=== PATIENT | female | born 1945 | race Two or more races ===

== ENCOUNTER 2025-02-10 17:22 | Inpatient (IN) | payer MEDICARE, OTHER ==
[~2025-02-10] VITALS: Ht 147.3 cm; Wt 45.8 kg
[2025-02-10] MEDS ORDERED: QUET50TA24 PO (17:33)
[2025-02-10] MEDS ORDERED: DONE5TAB34 PO (17:33)
[2025-02-10] MEDS ORDERED: DIVA125T32 PO (17:33)
[2025-02-10] MEDS ORDERED: ATOR10TA PO (17:33)
[2025-02-10] MEDS ORDERED: AMLO-212 PO (17:33)
[2025-02-10] MEDS ORDERED: OLAN5TAB70 PO (17:33)
[2025-02-10 18:08] LABS: *BILIRUBIN,URIN NEGATIVE (NEGATIVE); *CLARITY,URINE CLEAR (CLEAR); *KETONES,URINE NEGATIVE (NEGATIVE); *PROTEIN,URINE NEGATIVE (NEGATIVE); *UROBILINOGEN,URINE 0.2 E.U./dl (NORMAL); LEUKOCYTE ESTERASE ,URINE TRACE (NEGATIVE); NITRITE, URINE NEGATIVE (NEGATIVE); UGLUCOSE NEGATIVE (NEGATIVE)
[2025-02-10 18:11] LABS: CREATININE 0.9 mg/dL (0.6-1.3); PLATELET COUNT (AUTO) 215 K/uL (179-408); RED BLOOD CELL COUNT(AUTO) 4.77 MIL/uL (3.63-4.92); RED CELL DISTRIBUTION WIDTH 12.0 % (12.3-17.7); SODIUM SERUM 140 mmol/L (136-145); UREA NITROGEN, BLOOD 17 mg/dL (7-18); WHITE BLOOD COUNT (AUTO) 8.4 K/uL (3.8-11.8)
[2025-02-10 18:12] LABS: *BLOOD, URINE TRACE (NEGATIVE); *COLOR,URINE LIGHT YELLOW (YELLOW)
[2025-02-10 18:16] LABS: ASPARTATE AMINOTRANSFERASE 15 U/L (15-37); TOTAL PROTEIN, SERUM 8.6 g/dL (6.4-8.2)
[2025-02-10 18:21] LABS: SQUAMOUS EPITHELIAL CELL,UR FEW /HPF (NONE SEEN)
[2025-02-10 18:23] LABS: *AMPHETAMINE, URINE NEGATIVE (NEGATIVE); *BARBITURATE, URINE NEGATIVE (NEGATIVE); *BENZODIAZEPINE, URINE NEGATIVE (NEGATIVE); *CANNABINOID, URINE NEGATIVE (NEGATIVE); *COCCAINE, URINE NEGATIVE (NEGATIVE); *OPIATE, URINE NEGATIVE (NEGATIVE); *PHENCYCLIDINE SCREEN,URINE NEGATIVE (NEGATIVE); FENTANYL, URINE NEGATIVE (NEGATIVE)
[2025-02-10 18:25] LABS: ETHANOL < 3 MG/DL (0-10)
[2025-02-10] MEDS: OLANZAPINE 10 MG VIAL IM ONE (21:01)
[2025-02-10] MEDS: MIDAZOLAM HCL 2 MG/2 ML VIAL IM ONE (21:02)
[2025-02-10] MEDS ORDERED: MAGNESIUM HYDROXIDE 30 ML LIQUID UDC PO PRN (21:15)
[2025-02-10] MEDS ORDERED: ZOLPIDEM 5 MG TABLET PO PRN ×2 (21:15)
[2025-02-10] MEDS ORDERED: QUETIAPINE FUMARATE 25 MG TABLET PO SCH (21:15)
[2025-02-10] MEDS ORDERED: QUETIAPINE FUMARATE 25 MG TABLET PO PRN (21:15)
[2025-02-10] MEDS: BLOOD SUGAR DIAGNOSTIC 1 EACH STRIP VI ONE (21:28)
[2025-02-10] MEDS: HALOPERIDOL LACTATE 5 MG/1 ML VIAL IM STA (23:33)
[2025-02-10] MEDS: LORAZEPAM 2 MG/1 ML VIAL IM STA (23:33)
[2025-02-11] MEDS ORDERED: QUETIAPINE FUMARATE 25 MG TABLET PO PRN (05:45)
[2025-02-11] MEDS ORDERED: CLON0.1T PO (06:01)
[2025-02-11] MEDS ORDERED: IBUP-1953 PO (06:02)
[2025-02-11] MEDS ORDERED: MULT-647 PO (06:02)
[2025-02-11] MEDS ORDERED: IBUP-1955 PO (06:04)
[2025-02-11 07:58] VITALS: BP 121/77; TEMP 98; O2SAT 96
[2025-02-11] MEDS ORDERED: CLONIDINE HCL 0.1 MG TABLET PO PRN (10:15)
[2025-02-11] MEDS: DIVALPROEX 125 MG TABLET.DR PO SCH (15:17)
[2025-02-11] MEDS: ENSURE ENLIVE (VAN) 240 ML LIQUID PO SCH (15:24)
[2025-02-11 15:57] VITALS: BP 125/73; TEMP 98; O2SAT 96
[2025-02-11] MEDS: ATORVASTATIN 10 MG TABLET PO SCH (21:00)
[2025-02-11] MEDS: OLANZAPINE 2.5 MG TABLET PO SCH (21:00)
[2025-02-12 08:00] VITALS: BP 112/69; TEMP 98; O2SAT 98
[2025-02-12] MEDS: AMLODIPINE 5 MG TABLET PO SCH (08:37)
[2025-02-12 19:48] VITALS: BP 130/85; TEMP 98; O2SAT 96
[2025-02-13 08:55] VITALS: O2SAT 98
[2025-02-13 16:27] VITALS: BP 139/83; TEMP 98; O2SAT 100
[2025-02-13 20:00] VITALS: BP 121/84; TEMP 97.7; O2SAT 96
[2025-02-14 08:40] VITALS: BP 128/61; TEMP 98; O2SAT 98
[2025-02-14 16:51] VITALS: BP 149/88; TEMP 98; O2SAT 95
[2025-02-15] MEDS: OLANZAPINE 2.5 MG TABLET PO SCH (08:43)
[2025-02-16 08:42] VITALS: BP 141/93; O2SAT 100
[2025-02-16] MEDS: OLANZAPINE 10 MG VIAL IM PRN (11:10)
[2025-02-16 16:11] VITALS: BP 149/92; TEMP 98.3; O2SAT 97
[2025-02-16 19:57] VITALS: BP 145/89; TEMP 98; O2SAT 96
[2025-02-17 07:30] VITALS: BP 110/67; TEMP 98; O2SAT 96
[2025-02-17 19:38] VITALS: BP 112/64; TEMP 97.9; O2SAT 95
[2025-02-18] MEDS ORDERED: DIVALPROEX 125 MG TABLET.DR PO SCH (14:00)
[2025-02-18] MEDS: DIVALPROEX 250 MG TABLET.DR PO SCH (14:00)
[2025-02-18 15:43] VITALS: BP 140/82; TEMP 98; O2SAT 96
[2025-02-18 20:00] VITALS: BP 156/88; TEMP 98; O2SAT 96
[2025-02-19 09:08] VITALS: BP 126/87; TEMP 98; O2SAT 98
[2025-02-19] MEDS ORDERED: LORAZEPAM 2 MG/1 ML VIAL IV ONE (12:45)
[2025-02-19] MEDS ORDERED: LORAZEPAM 2 MG/1 ML VIAL IM ONE (12:45)
[2025-02-19 15:17] VITALS: BP 150/95; TEMP 98.2; O2SAT 99
[2025-02-19] MEDS: LORAZEPAM 2 MG/1 ML VIAL IM ONE (15:36)
[2025-02-19 20:00] VITALS: BP 110/79; TEMP 98; O2SAT 97
[2025-02-20 08:20] VITALS: BP 118/76; TEMP 98.3; O2SAT 97
[2025-02-20 20:00] VITALS: BP 129/75; TEMP 98.5; O2SAT 96
[2025-02-21] MEDS: ZOLPIDEM 5 MG TABLET PO PRN (01:33)
[2025-02-21] MEDS: ACETAMINOPHEN 325 MG TABLET PO PRN (03:54)
[2025-02-21 08:51] VITALS: BP 112/75; TEMP 98; O2SAT 98
[2025-02-21] MEDS: IBUPROFEN 600 MG TABLET PO PRN (09:26)
[2025-02-21 16:12] VITALS: BP 126/65; TEMP 98; O2SAT 99
[2025-02-21 20:23] VITALS: BP 118/72; TEMP 98.1; O2SAT 95
[2025-02-21] MEDS: OLANZAPINE 5 MG TABLET PO SCH (20:23)
[2025-02-21] MEDS ORDERED: OLANZAPINE 2.5 MG TABLET PO SCH (21:00)
[2025-02-22] MEDS: OLANZAPINE 10 MG VIAL IM ONE (00:48)
[2025-02-22 08:56] VITALS: BP 115/80; TEMP 98; O2SAT 98
[2025-02-22] MEDS ORDERED: DIVALPROEX 250 MG TABLET.DR PO SCH (14:00)
[2025-02-22] MEDS: DIVALPROEX 125 MG TABLET.DR PO SCH (15:45)
[2025-02-22] MEDS: OLANZAPINE 2.5 MG TABLET PO SCH (15:46)
[2025-02-22 16:31] VITALS: BP 122/50; TEMP 98.1; O2SAT 95
[2025-02-22] MEDS: OLANZAPINE 5 MG TABLET PO SCH (21:47)
[2025-02-23] MEDS: HALOPERIDOL LACTATE 5 MG/1 ML VIAL IM ONE (04:24)
[2025-02-23 08:22] VITALS: BP 122/76; TEMP 97.6; O2SAT 97
[2025-02-23 11:42] LABS: PLATELET COUNT (AUTO) 145 K/uL (179-408); RED BLOOD CELL COUNT(AUTO) 4.91 MIL/uL (3.63-4.92); RED CELL DISTRIBUTION WIDTH 12.6 % (12.3-17.7); WHITE BLOOD COUNT (AUTO) 8.3 K/uL (3.8-11.8)
[2025-02-23 11:49] LABS: CREATININE 0.7 mg/dL (0.6-1.3); SODIUM SERUM 145 mmol/L (136-145); UREA NITROGEN, BLOOD 22 mg/dL (7-18)
[2025-02-23] MEDS: OLANZAPINE 5 MG TABLET PO SCH (13:36)
[2025-02-23] MEDS: OLANZAPINE 10 MG VIAL IM PRN (13:41)
[2025-02-23] MEDS ORDERED: OLANZAPINE 2.5 MG TABLET PO SCH (14:00)
[2025-02-23 16:49] VITALS: BP 114/72; TEMP 97.1; O2SAT 98
[2025-02-23 20:00] VITALS: BP 124/72; TEMP 98; O2SAT 95
[2025-02-23] MEDS ORDERED: OLANZAPINE 10 MG VIAL IM PRN (21:00)
[2025-02-23 21:21] LABS: *BILIRUBIN,URIN NEGATIVE (NEGATIVE); *BLOOD, URINE NEGATIVE (NEGATIVE); *CLARITY,URINE CLEAR (CLEAR); *COLOR,URINE YELLOW (YELLOW); *KETONES,URINE 2+ (NEGATIVE); *PROTEIN,URINE 1+ (NEGATIVE); *UROBILINOGEN,URINE 0.2 E.U./dl (NORMAL); LEUKOCYTE ESTERASE ,URINE NEGATIVE (NEGATIVE); NITRITE, URINE NEGATIVE (NEGATIVE); UGLUCOSE NEGATIVE (NEGATIVE)
[2025-02-23 21:53] LABS: SQUAMOUS EPITHELIAL CELL,UR FEW /HPF (NONE SEEN)
[2025-02-24] MEDS: GABAPENTIN 300 MG CAPSULE PO SCH (11:00)
[2025-02-25 08:07] VITALS: BP 122/77; TEMP 97.6; O2SAT 97
[2025-02-25] MEDS ORDERED: OLANZAPINE 10 MG VIAL IM PRN ×2 (15:15)
[2025-02-25 17:44] VITALS: BP 110/70; TEMP 97.7; O2SAT 97
[2025-02-25 20:00] VITALS: BP 106/62; O2SAT 97
[2025-02-25] MEDS: OLANZAPINE 5 MG TABLET PO SCH (20:49)
[2025-02-26 07:45] VITALS: BP 128/79; TEMP 98.4; O2SAT 94
[2025-02-26 07:51] LABS: PLATELET COUNT (AUTO) 158 K/uL (179-408); RED BLOOD CELL COUNT(AUTO) 4.88 MIL/uL (3.63-4.92); RED CELL DISTRIBUTION WIDTH 12.2 % (12.3-17.7); WHITE BLOOD COUNT (AUTO) 6.8 K/uL (3.8-11.8)
[2025-02-26 16:19] VITALS: BP 129/70; TEMP 97.8; O2SAT 98
[2025-02-28 08:12] VITALS: BP 166/71; TEMP 98; O2SAT 95
[2025-02-28 16:25] VITALS: BP 130/92; TEMP 98; O2SAT 95
[2025-02-28 19:46] VITALS: BP 136/72; TEMP 98.1; O2SAT 95
[2025-03-01 08:36] VITALS: BP 130/81; TEMP 98; O2SAT 95
[2025-03-01] MEDS ORDERED: OLANZAPINE 10 MG VIAL IM PRN ×2 (12:45)
[2025-03-01 16:45] VITALS: BP 142/80; TEMP 98.1; O2SAT 95
[2025-03-01] MEDS: MAG HYDROX/AL HYDROX/SIMETH 30 ML LIQUID UDC PO PRN (17:01)
[2025-03-01 19:49] VITALS: BP 114/73; TEMP 97.9; O2SAT 94
[2025-03-02 08:50] VITALS: BP 113/72; TEMP 97.7; O2SAT 96
[2025-03-02 18:33] VITALS: BP 127/78; TEMP 97.6; O2SAT 96
[2025-03-02 19:59] VITALS: BP 88/58; TEMP 98; O2SAT 95
[2025-03-03 07:32] LABS: PLATELET COUNT (AUTO) 141 K/uL (179-408); RED BLOOD CELL COUNT(AUTO) 4.90 MIL/uL (3.63-4.92); RED CELL DISTRIBUTION WIDTH 14.0 % (12.3-17.7); WHITE BLOOD COUNT (AUTO) 12.6 K/uL (3.8-11.8)
[2025-03-03 07:56] LABS: CREATININE 1.5 mg/dL (0.6-1.3); SODIUM SERUM 155 mmol/L (136-145); UREA NITROGEN, BLOOD 74 mg/dL (7-18)
[2025-03-03 08:20] LABS: LYMPHOCYTES % (MANUAL) 14 % (20-40); MONOCYTES % (MANUAL) 13 % (2-10); NEUTROPHILS % (MANUAL) 73 % (42-75)
[2025-03-03 08:21] LABS: PLATELET ESTIMATE SLIGHT DECREASED
[2025-03-03 08:22] VITALS: BP 90/44; TEMP 98; O2SAT 96
[2025-03-03 15:27] VITALS: BP 91/66; TEMP 98; O2SAT 94
[2025-03-03] MEDS ORDERED: OLAN5TAB3 PO (17:45)
[2025-03-03] MEDS ORDERED: OLAN10TA3 PO (17:45)
[2025-03-03] MEDS ORDERED: DIVA125T2 PO (17:45)
[2025-03-03] MEDS ORDERED: GABA300C PO (17:45)
[2025-03-03] MEDS ORDERED: LACT-246 PO (17:48)
[2025-03-03] MEDS ORDERED: CLON0.1T PO (17:48)
[2025-03-03] MEDS ORDERED: ZOLP5TAB8 PO (18:11)
== END 2025-03-03 16:09 | disposition short-term general hospital (02) | DRG 885 ==
LOC: ER 17:26 → GPS 20:49 → UNDOADMIN 20:49 → MEDSURG3 03-03 16:00 → UNDOADMIN 03-03 16:09 → UNDODISIN 03-03 16:09 → GPS 03-03 16:09
PROVIDERS: ADMIT Psychiatry & Neurology Psychiatry; ATTEND Nurse Practitioner Acute Care
DX: F29 Unspecified psychosis not due to a substance or known physiological condition (principal); F03.911 Unspecified dementia, unspecified severity, with agitation; F03.92 Unspecified dementia, unspecified severity, with psychotic disturbance; F03.93 Unspecified dementia, unspecified severity, with mood disturbance; F03.94 Unspecified dementia, unspecified severity, with anxiety; E78.5 Hyperlipidemia, unspecified; G89.29 Other chronic pain; Z79.899 Other long term (current) drug therapy; R00.0 Tachycardia, unspecified; M16.0 Bilateral primary osteoarthritis of hip; I10 Essential (primary) hypertension; R13.10 Dysphagia, unspecified; Z91.148 Patient's other noncompliance with medication regimen for other reason; Z91.81 History of falling
CPT/HCPCS: 36415; 70030-TC; 71045; 72110; 72170; 73501; 73521; 80164; 83605; 83735; 84443; 84484; 85025; 87040; 87086; G0480; J1630; J2060; J2250; J2358; J3490

== ENCOUNTER 2025-03-03 16:27 | Inpatient (IN) | payer MEDICARE, OTHER ==
[~2025-03-03] VITALS: Ht 152.4 cm; Wt 46.3 kg
[~2025-03-03 16:27] MED LIST: AMLO-212 PO; ATOR10TA PO; CLON0.1T PO; IBUP-1953 PO; IBUP-1955 PO; MULT-647 PO
[2025-03-03 17:00] VITALS: BP 111/65; TEMP 98.2; O2SAT 94
[2025-03-03] MEDS ORDERED: ONDANSETRON 4 MG/2 ML VIAL IV PRN (17:15)
[2025-03-03] MEDS ORDERED: DIVA125T2 PO (17:45)
[2025-03-03] MEDS ORDERED: OLAN5TAB3 PO (17:45)
[2025-03-03] MEDS ORDERED: OLAN10TA3 PO (17:45)
[2025-03-03] MEDS ORDERED: GABA300C PO (17:45)
[2025-03-03] MEDS ORDERED: LACT-246 PO (17:48)
[2025-03-03] MEDS ORDERED: CLON0.1T PO (17:48)
[2025-03-03] MEDS ORDERED: ZOLP5TAB8 PO (18:11)
[2025-03-03 20:21] VITALS: BP 130/81; O2SAT 92
[2025-03-03 20:26] LABS: *BILIRUBIN,URIN 1+ (NEGATIVE); *CLARITY,URINE SLIGHTLY CLOUDY (CLEAR); *COLOR,URINE YELLOW (YELLOW); *KETONES,URINE TRACE (NEGATIVE); *PROTEIN,URINE 2+ (NEGATIVE); *UROBILINOGEN,URINE 1.0 E.U./dl (NORMAL); LEUKOCYTE ESTERASE ,URINE NEGATIVE (NEGATIVE); NITRITE, URINE NEGATIVE (NEGATIVE); UGLUCOSE NEGATIVE (NEGATIVE)
[2025-03-03 20:33] LABS: *BLOOD, URINE TRACE (NEGATIVE)
[2025-03-03 20:45] LABS: SQUAMOUS EPITHELIAL CELL,UR FEW /HPF (NONE SEEN)
[2025-03-03] MEDS: OLANZAPINE 10 MG VIAL IM PRN (23:15)
[2025-03-03] MEDS: IV D5W 1000ML 1,000 ML IV PRN (23:46)
[2025-03-04 05:21] VITALS: BP 126/83; TEMP 98; O2SAT 95
[2025-03-04] MEDS: PANTOPRAZOLE SODIUM 40 MG TABLET.DR PO SCH (06:10)
[2025-03-04 07:02] LABS: PLATELET COUNT (AUTO) 172 K/uL (179-408); RED BLOOD CELL COUNT(AUTO) 4.61 MIL/uL (3.63-4.92); RED CELL DISTRIBUTION WIDTH 12.4 % (12.3-17.7); WHITE BLOOD COUNT (AUTO) 10.7 K/uL (3.8-11.8)
[2025-03-04 07:49] LABS: CREATININE 1.0 mg/dL (0.6-1.3); SODIUM SERUM 152 mmol/L (136-145); UREA NITROGEN, BLOOD 51 mg/dL (7-18)
[2025-03-04] MEDS: MULTIVITAMINS,THERAPEUTIC TABLET PO SCH (08:11)
[2025-03-04] MEDS ORDERED: MULTIVITAMINS THERAPEUTIC PO SCH (09:00)
[2025-03-04] MEDS: POTASSIUM CHLORIDE 20 MEQ POWDER PACKET PO ONE (10:49)
[2025-03-04 11:55] VITALS: BP 106/71; TEMP 98; O2SAT 97
[2025-03-04] MEDS: CEFTRIAXONE 1 G in IV DEXTROSE 5% 50 ML IV SCH (13:31)
[2025-03-04] MEDS: OLANZAPINE ZYDIS 5 MG TAB.RAPDIS PO SCH (13:46)
[2025-03-04] MEDS: DIVALPROEX 250 MG TABLET.DR PO SCH (13:46)
[2025-03-04 13:55] LABS: LYMPHOCYTES % (MANUAL) 21 % (20-40); MONOCYTES % (MANUAL) 15 % (2-10); NEUTROPHILS % (MANUAL) 64 % (42-75); PLATELET ESTIMATE ADEQUATE
[2025-03-04] MEDS ORDERED: DIVALPROEX 125 MG TABLET.DR PO SCH (14:00)
[2025-03-04 16:00] VITALS: BP 127/67; TEMP 98.9; O2SAT 95
[2025-03-04] MEDS: ENSURE ENLIVE (VAN) 240 ML LIQUID PO SCH (17:00)
[2025-03-04] MEDS: LORAZEPAM 2 MG/1 ML VIAL IM ONE (19:12)
[2025-03-04] MEDS: OLANZAPINE 10 MG VIAL IM ONE (19:12)
[2025-03-04 19:30] VITALS: BP 115/65; TEMP 99.5; O2SAT 97
[2025-03-04] MEDS: HEPARIN SODIUM,PORCINE 5,000 UNITS/ML VIAL SQ SCH (21:00)
[2025-03-05 05:45] LABS: PLATELET COUNT (AUTO) 162 K/uL (179-408); RED BLOOD CELL COUNT(AUTO) 4.37 MIL/uL (3.63-4.92); RED CELL DISTRIBUTION WIDTH 12.4 % (12.3-17.7); WHITE BLOOD COUNT (AUTO) 10.7 K/uL (3.8-11.8)
[2025-03-05 06:17] LABS: CREATININE 0.9 mg/dL (0.6-1.3); SODIUM SERUM 142 mmol/L (136-145); UREA NITROGEN, BLOOD 23 mg/dL (7-18)
[2025-03-05 11:04] VITALS: BP 132/69; TEMP 98; O2SAT 94
[2025-03-05 17:03] VITALS: BP 110/62; TEMP 98.9; O2SAT 94
[2025-03-05 17:46] LABS: *CREATININE,URINE 104.9 mg/dL (30-125); *SODIUM RNDM,URINE 29.0 mmol/L (40-220); *URINE TOTAL PROTEIN RANDOM 44.8 mg/dL (<150/24HR)
[2025-03-05 20:30] VITALS: BP 114/60; TEMP 98.7; O2SAT 93
[2025-03-06 05:49] VITALS: BP 122/63; TEMP 98.7; O2SAT 94
[2025-03-06 07:15] LABS: PLATELET COUNT (AUTO) 186 K/uL (179-408); RED BLOOD CELL COUNT(AUTO) 4.41 MIL/uL (3.63-4.92); RED CELL DISTRIBUTION WIDTH 12.0 % (12.3-17.7); WHITE BLOOD COUNT (AUTO) 9.3 K/uL (3.8-11.8)
[2025-03-06 07:31] LABS: CREATININE 0.9 mg/dL (0.6-1.3); SODIUM SERUM 144 mmol/L (136-145); UREA NITROGEN, BLOOD 15 mg/dL (7-18)
[2025-03-06 12:04] VITALS: BP 102/57; TEMP 97.6; O2SAT 96
[2025-03-06] MEDS: MEGESTROL ACETATE 20 MG TABLET PO SCH (13:15)
[2025-03-06 16:37] VITALS: BP 110/56; TEMP 97.9; O2SAT 93
[2025-03-06 19:25] VITALS: BP 113/62; TEMP 97.4; O2SAT 94
[2025-03-07 06:14] VITALS: BP 135/65; TEMP 98.9; O2SAT 90
[2025-03-07 06:23] LABS: PLATELET COUNT (AUTO) 196 K/uL (179-408); RED BLOOD CELL COUNT(AUTO) 4.28 MIL/uL (3.63-4.92); RED CELL DISTRIBUTION WIDTH 12.2 % (12.3-17.7); WHITE BLOOD COUNT (AUTO) 8.7 K/uL (3.8-11.8)
[2025-03-07 06:39] LABS: CREATININE 0.7 mg/dL (0.6-1.3); SODIUM SERUM 142 mmol/L (136-145); UREA NITROGEN, BLOOD 21 mg/dL (7-18)
[2025-03-07 08:57] LABS: NEUTROPHILS % (MANUAL) 64 % (42-75)
[2025-03-07 08:58] LABS: EOSINOPHILS % (MANUAL) 3 % (0-8); LYMPHOCYTES % (MANUAL) 17 % (20-40); MONOCYTES % (MANUAL) 16 % (2-10); PLATELET ESTIMATE ADEQUATE
[2025-03-07] MEDS: IV D5 1/2 NS 1000 ML 1,000 ML IV PRN (09:17)
[2025-03-07 11:06] VITALS: BP 123/70; TEMP 98.2; O2SAT 93
[2025-03-07] MEDS: OLANZAPINE ZYDIS 5 MG TAB.RAPDIS PO SCH ×2 (14:20→21:31)
[2025-03-07 15:08] VITALS: BP 131/99; TEMP 98.4; O2SAT 94
[2025-03-07 19:50] VITALS: BP 121/45; TEMP 99.4; O2SAT 92
[2025-03-08 06:51] LABS: PLATELET COUNT (AUTO) 238 K/uL (179-408); RED BLOOD CELL COUNT(AUTO) 4.57 MIL/uL (3.63-4.92); RED CELL DISTRIBUTION WIDTH 12.2 % (12.3-17.7); WHITE BLOOD COUNT (AUTO) 10.3 K/uL (3.8-11.8)
[2025-03-08 07:22] LABS: CREATININE 0.7 mg/dL (0.6-1.3); SODIUM SERUM 147 mmol/L (136-145); UREA NITROGEN, BLOOD 16 mg/dL (7-18); VALPROIC ACID 17 ug/mL (50-100)
[2025-03-08 11:32] VITALS: BP 90/53; TEMP 98.5; O2SAT 95
[2025-03-08] MEDS ORDERED: DIVALPROEX 250 MG TABLET.DR PO SCH (14:00)
[2025-03-08] MEDS: DIVALPROEX 125 MG TABLET.DR PO SCH (14:57)
[2025-03-08 15:49] VITALS: BP 132/68; TEMP 98; O2SAT 95
[2025-03-08 19:00] VITALS: BP 126/57; O2SAT 95
[2025-03-09 06:21] VITALS: BP 119/41; O2SAT 95
[2025-03-09 11:40] VITALS: BP 142/75; O2SAT 96
[2025-03-09] MEDS ORDERED: DIVALPROEX 125 MG TABLET.DR PO SCH (14:00)
[2025-03-09] MEDS: DIVALPROEX 500 MG TABLET.DR PO SCH (14:00)
[2025-03-09 16:09] VITALS: BP 139/46; TEMP 98; O2SAT 95
[2025-03-09 20:04] VITALS: BP 131/42; TEMP 99.2; O2SAT 94
[2025-03-10] MEDS: ACETAMINOPHEN 325 MG TABLET PO PRN (03:54)
[2025-03-10 04:54] VITALS: BP 150/76; TEMP 98.1; O2SAT 96
[2025-03-10 11:49] VITALS: BP 107/80; TEMP 97.8; O2SAT 98
[2025-03-10 16:24] VITALS: BP 98/66; TEMP 97.8; O2SAT 95
[2025-03-10 20:00] VITALS: BP 111/58; TEMP 98.6; O2SAT 99
[2025-03-11 08:19] LABS: PLATELET COUNT (AUTO) 235 K/uL (179-408); RED BLOOD CELL COUNT(AUTO) 3.91 MIL/uL (3.63-4.92); RED CELL DISTRIBUTION WIDTH 12.0 % (12.3-17.7); WHITE BLOOD COUNT (AUTO) 7.0 K/uL (3.8-11.8)
[2025-03-11 08:32] LABS: ASPARTATE AMINOTRANSFERASE 30 U/L (15-37); CREATININE 0.6 mg/dL (0.6-1.3); SODIUM SERUM 142 mmol/L (136-145); TOTAL PROTEIN, SERUM 6.5 g/dL (6.4-8.2); UREA NITROGEN, BLOOD 8 mg/dL (7-18)
[2025-03-11 11:46] VITALS: BP 124/64; TEMP 98; O2SAT 98
[2025-03-11] MEDS: POTASSIUM CHLORIDE 50 ML IV SCH (11:52)
[2025-03-11] MEDS ORDERED: POTASSIUM CHLORIDE 20 MEQ POWDER PACKET PO ONE (12:00)
[2025-03-11 19:00] VITALS: BP 124/40; TEMP 98.6; O2SAT 96
[2025-03-12 07:44] VITALS: BP 157/78; TEMP 97.6; O2SAT 96
[2025-03-12] MEDS: REMEDY ESSENTIAL ZINC PASTE 113 GM TP PRN (16:05)
[2025-03-12 16:33] VITALS: BP 135/73; TEMP 97.6; O2SAT 97
[2025-03-12 19:00] VITALS: BP 108/51; TEMP 98.7
[2025-03-13 11:48] VITALS: BP 136/62; TEMP 98.2; O2SAT 98
[2025-03-13 16:22] VITALS: BP 111/44; TEMP 98.2; O2SAT 99
[2025-03-13 19:47] VITALS: BP 149/50; TEMP 98; O2SAT 97
[2025-03-14 05:47] VITALS: BP 158/77; TEMP 98.1; O2SAT 97
[2025-03-14 11:45] VITALS: BP 134/65; TEMP 98; O2SAT 97
[2025-03-14 16:13] VITALS: BP 142/73; TEMP 98.2; O2SAT 97
[2025-03-14 20:20] VITALS: BP 137/74; TEMP 98.3; O2SAT 92
[2025-03-15 04:27] VITALS: BP 123/80; TEMP 97.8; O2SAT 95
[2025-03-15] MEDS: CLONAZEPAM 0.5 MG TABLET PO SCH (10:37)
[2025-03-15 11:48] VITALS: BP 138/68; TEMP 97.8; O2SAT 96
[2025-03-15 16:00] VITALS: BP 152/77; TEMP 98.8; O2SAT 99
[2025-03-15 19:46] VITALS: BP 140/58; TEMP 97.6; O2SAT 95
[2025-03-16 05:55] VITALS: BP 128/58; TEMP 98.3; O2SAT 96
[2025-03-16] MEDS ORDERED: OLAN5TAB6 PO ×2 (10:22)
[2025-03-16] MEDS ORDERED: CLON0.5T4 PO (10:22)
[2025-03-16] MEDS ORDERED: MEGE20TA4 PO (10:22)
[2025-03-16] MEDS ORDERED: DIVA-78 PO (10:22)
[2025-03-16] MEDS: LACTULOSE 20 G/30 ML LIQUID UDC PO ONE (11:40)
[2025-03-16 12:00] VITALS: BP 120/68; TEMP 98.2; O2SAT 98
[2025-03-16 15:37] VITALS: BP 110/84; TEMP 98.2; O2SAT 94
[2025-03-16] MEDS: BISACODYL 10 MG SUPP.RECT RC PRN (17:06)
[2025-03-16 19:00] VITALS: BP 135/84
[2025-03-17] MEDS: SENNOSIDES/DOCUSATE SODIUM TABLET PO SCH (11:15)
[2025-03-17 15:01] VITALS: BP 145/55
[2025-03-17 19:15] VITALS: BP 133/75; TEMP 97.9; O2SAT 99
[2025-03-18 06:00] VITALS: BP 137/69
[2025-03-18 19:15] VITALS: BP 146/74; TEMP 97.9; O2SAT 98
[2025-03-19 04:00] VITALS: BP 140/68; TEMP 97.4; O2SAT 97
[2025-03-19 08:12] VITALS: BP 135/65; TEMP 97.8; O2SAT 98
[2025-03-19] MEDS: BISACODYL 10 MG SUPP.RECT RC PRN (22:58)
[2025-03-20 11:05] VITALS: BP 112/62; TEMP 98.6; O2SAT 95
[2025-03-20 15:33] VITALS: BP 128/78; TEMP 98.6; O2SAT 98
[2025-03-20 19:10] VITALS: BP 158/56; O2SAT 97
[2025-03-21 04:00] VITALS: BP 135/65; O2SAT 97
[2025-03-21 12:00] VITALS: BP 105/69; TEMP 97.6; O2SAT 97
[2025-03-21] MEDS: NEOMY/BACITRAC/POLYMI OINT 28.35 GM TUBE TOP SCH (13:29)
[2025-03-21 15:46] VITALS: BP 121/74; TEMP 97.7; O2SAT 96
[2025-03-21 19:15] VITALS: BP 120/60; O2SAT 97
[2025-03-22 04:15] VITALS: BP 142/65; TEMP 97.6; O2SAT 95
[2025-03-22 06:39] LABS: PLATELET COUNT (AUTO) 234 K/uL (179-408); RED BLOOD CELL COUNT(AUTO) 4.34 MIL/uL (3.63-4.92); RED CELL DISTRIBUTION WIDTH 12.6 % (12.3-17.7); WHITE BLOOD COUNT (AUTO) 6.3 K/uL (3.8-11.8)
[2025-03-22 07:07] LABS: CREATININE 0.8 mg/dL (0.6-1.3); SODIUM SERUM 152 mmol/L (136-145); UREA NITROGEN, BLOOD 23 mg/dL (7-18)
== END 2025-03-22 10:05 | DRG 682 ==
LOC: MEDSURG3 16:27
PROVIDERS: ADMIT Nurse Practitioner Family; ATTEND Nurse Practitioner Family
PROC: 05HC33Z Insertion of Infusion Device into Left Basilic Vein, Percutaneous Approach (ICD-10-PCS; principal; 2025-03-09)
DX: N17.9 Acute kidney failure, unspecified (principal); G93.41 Metabolic encephalopathy; F03.C2 Unspecified dementia, severe, with psychotic disturbance; F03.C3 Unspecified dementia, severe, with mood disturbance; Z68.1 Body mass index [BMI] 19.9 or less, adult; E87.1 Hypo-osmolality and hyponatremia; E87.0 Hyperosmolality and hypernatremia; F03.C4 Unspecified dementia, severe, with anxiety; E86.0 Dehydration; Z75.1 Person awaiting admission to adequate facility elsewhere; D69.6 Thrombocytopenia, unspecified; R62.7 Adult failure to thrive; Z79.899 Other long term (current) drug therapy; Z78.1 Physical restraint status; G89.29 Other chronic pain; Z91.148 Patient's other noncompliance with medication regimen for other reason; I10 Essential (primary) hypertension; E87.6 Hypokalemia; E78.5 Hyperlipidemia, unspecified; D72.829 Elevated white blood cell count, unspecified; Z53.20 Procedure and treatment not carried out because of patient's decision for unspecified reasons; M89.8X9 Other specified disorders of bone, unspecified site
CPT/HCPCS: 36415; 70030-TC; 70450; 80164; 83735; 84100; 84300; 85025; 87086; A4663; G0378; J0696; J1644; J2060; J2358; J3480; J3490; J7042; J7070